=== PATIENT | female | born 1985 | race Caucasian/White ===

== ENCOUNTER 2020-08-16 10:49 | Emergency (ER) | payer MEDICAID, OTHER, SELFPAY ==
[~2020-08-16] VITALS: Ht 170.2 cm; Wt 88.3 kg
[2020-08-16 10:49] VITALS: BP 132/85
[2020-08-16] MEDS ORDERED: IBUP1TAB7 PO (11:06)
--- NOTE | 2020-08-16 12:19 | REP ---
INDICATION: moving heavy dresser Tues pain since. COMPARISON: None. TECHNIQUE: Two views left scapula. FINDINGS: There is no acute fracture, dislocation or intrinsic bone disease. IMPRESSION: No fracture or dislocation. <Electronically signed by [place] Hartman > 08/16/20 [id number]
--- NOTE | 2020-08-16 12:19 | REP ---
INDICATION: moving heavy dresser Tues pain since COMPARISON: None. TECHNIQUE: Three views left shoulder. FINDINGS: There is no evidence of acute fracture, dislocation, or intrinsic bone disease. IMPRESSION: No fracture or dislocation. <Electronically signed by [place] Hartman > 08/16/20 [id number]
[2020-08-16] MEDS ORDERED: ACETAMINOPHEN 500 MG TAB PO ONE (13:15)
== END 2020-08-16 13:20 | disposition home or self-care (01) ==
LOC: M ED 10:49
DX: M25.512 Pain in left shoulder (principal); J45.909 Unspecified asthma, uncomplicated; F31.9 Bipolar disorder, unspecified; Z88.8 Allergy status to other drugs, medicaments and biological substances

== ENCOUNTER 2020-09-18 20:52 | Emergency (ER) | payer MEDICAID ==
[~2020-09-18] VITALS: Ht 167.6 cm; Wt 81.8 kg
[~2020-09-18 20:52] MED LIST: IBUP1TAB7 PO
[2020-09-18] MEDS ORDERED: diphenhydrAMINE 50MG/ML VIAL (J1200) IV STA (22:19)
[2020-09-18] MEDS ORDERED: METOCLOPRAMIDE INJ 10MG/2ML VIAL (J2765 PER 1) IV ONE (22:30)
[2020-09-18] MEDS ORDERED: NS 1,000 ML IV ONE (22:30)
[2020-09-18] MEDS ORDERED: KETOROLAC 30 MG/ML 1ML VIAL IV ONE (22:30)
[2020-09-18 23:01] LABS: BASO # 0.1 10^3/uL (0.0-0.2); BASO % 0.6 % (0.0-1.0); EOS # 0.1 10^3/uL (0.0-0.5); EOS % 0.8 % (0.0-3.0); HEMATOCRIT 47.1 % (36.0-47.0); HEMOGLOBIN 15.2 g/dl (12.0-15.5); LYMPH % 22.9 % (24.0-44.0); MEAN CORPUSCULAR HEMOGLOBIN 28.2 pg (27.0-33.0); MEAN CORPUSCULAR HGB CONC 32.3 g/dl (32.0-36.5); MEAN CORPUSCULAR VOLUME 87.4 fl (80.0-96.0); MONO # 1.2 10^3/uL (0.0-0.8); MONO % 8.7 % (2.0-8.0); NEUTROPHILS # 8.8 10^3/uL (1.5-8.5); NEUTROPHILS % 66.5 % (36.0-66.0); PLATELET COUNT, AUTOMATED 244 10^3/uL (150-450); RED BLOOD COUNT 5.39 10^6/uL (4.00-5.40); WHITE BLOOD COUNT 13.2 10^3/uL (4.0-10.0)
[2020-09-19 01:08] VITALS: BP 122/71
--- NOTE | 2020-09-19 07:58 | REP ---
INDICATION: hx migraine, new area, not typical for pt.. Repeat dictation. Preliminary report is provided at the time of the exam by ton LANDRUM. COMPARISON: None. TECHNIQUE: Helical scanning is acquired. 5 mm axial images were reformatted. Coronal MPR images were generated. FINDINGS: Bone window settings demonstrate an intact bony calvarium. There is no evidence of skull fracture or incidental bony calvarial lesion. The visualized paranasal sinuses appear clear. No intraorbital abnormality is seen. On soft tissue window setting images; the lateral, third, and fourth ventricles are normal in size and position. Hartman-white differentiation pattern is normal above and below the tentorium. There are is no evidence of intracranial hemorrhage. No mass, edema, infarction, or midline shift is seen. No extra-axial fluid collection is appreciated. Digital preliminary gift officer radiograph is unremarkable. The patient is edentulous. IMPRESSION: Negative noncontrast head CT. <Electronically signed by Fredy Berrios > 09/19/20 [id number]
== END 2020-09-19 01:25 | disposition home or self-care (01) ==
LOC: M ED 20:52
DX: R51.9 Headache, unspecified (principal); F31.9 Bipolar disorder, unspecified; Z88.8 Allergy status to other drugs, medicaments and biological substances; Z79.899 Other long term (current) drug therapy
CPT/HCPCS: 70450; 80047; 83735; 84702; 85025; 96361; 96374; 96375; 99284; J1200; J1885; J2765

== ENCOUNTER 2020-09-26 12:33 | Emergency (ER) | payer MEDICAID ==
[~2020-09-26] VITALS: Ht 165.1 cm; Wt 85.6 kg
[2020-09-26] MEDS ORDERED: EXCETAB33 PO (12:44)
--- OUTSIDE RECORDS SUMMARY | 2020-09-26 13:04 | CCD ---
Author Author [facility] Organization [facility] Address Unknown Phone Unavailable Care Team Providers Care Switching Clerk Name Role Phone Martha ANTON MD Unavailable Unavailable Martha ANTON MD Unavailable Unavailable Martha ANTON MD Unavailable Unavailable Martha ANTON MD Unavailable Unavailable Martha ANTON MD Unavailable Unavailable Martha ANTON MD Unavailable Unavailable Martha ANTON MD Unavailable Unavailable Martha ANTON MD Unavailable Unavailable Martha ANTON MD Unavailable Unavailable Martha ANTON MD Unavailable Unavailable Martha ANTON MD Unavailable Unavailable Martha ANTON MD Unavailable Unavailable Martha ANTON MD Unavailable Unavailable Martha ANTON MD Unavailable Unavailable Martha ANTON MD Unavailable Unavailable Martha ANTON MD Unavailable Unavailable Martha ANTON MD Unavailable Unavailable Martha ANTON MD Unavailable Unavailable Martha ANTON MD Unavailable Unavailable Martha ANTON MD Unavailable Unavailable Martha ANTON MD Unavailable Unavailable Martha ANTON MD Unavailable Unavailable Martha ANTON MD Unavailable Unavailable Martha ANTON MD Unavailable Unavailable Martha ANTON MD Unavailable Unavailable Martha ANTON MD Unavailable Unavailable Martha ANTON MD Unavailable Unavailable Martha ANTON MD Unavailable Unavailable Martha ANTON MD Unavailable Unavailable Martha ANTON MD Unavailable Unavailable Martha ANTON MD Unavailable Unavailable Martha ANTON MD Unavailable Unavailable Martha ANTON MD Unavailable Unavailable Martha ANTON MD Unavailable Unavailable SETTERMartha MD Unavailable Unavailable SETTERMartha MD Unavailable Unavailable SETTERMartha MD Unavailable Unavailable SETTER, Martha ORTEZ MD Unavailable Unavailable SETTER, Martha ORTEZ MD Unavailable Unavailable SETTER, Martha ORTEZ MD Unavailable Unavailable SETTER, Martha ORTEZ MD Unavailable Unavailable SETTERMartha MD Unavailable Unavailable SETTER, Martha ORTEZ MD Unavailable Unavailable SETTER, Martha ORTEZ MD Unavailable Unavailable SETTER, Martha ORTEZ MD Unavailable Unavailable SETTER, Martha ORTEZ MD Unavailable Unavailable SETTER, Martha ORTEZ MD Unavailable Unavailable SETTER, Martha ORTEZ MD Unavailable Unavailable SETTER, Martha ORTEZ MD Unavailable Unavailable SETTER, Martha ORTEZ MD Unavailable Unavailable SETTER, Martha ORTEZ MD Unavailable Unavailable SETTER, Martha ORTEZ MD Unavailable Unavailable SETTER, Martha ORTEZ MD Unavailable Unavailable SETTER, Martha ORTEZ MD Unavailable Unavailable SETTERMartha MD Unavailable Unavailable SETTERMartha MD Unavailable Unavailable SETTER, Martha ORTEZ MD Unavailable Unavailable SETTER, Martha ORTEZ MD Unavailable Unavailable SETTER, Martha ORTEZ MD Unavailable Unavailable SETTER, Martha ORTEZ MD Unavailable Unavailable SETTERMartha MD Unavailable Unavailable SETTERMartha MD Unavailable Unavailable SETTERMartha MD Unavailable Unavailable SETTERMartha MD Unavailable Unavailable SETTERMartha MD Unavailable Unavailable SETTERMartha MD Unavailable Unavailable SETTERMartha MD Unavailable Unavailable SETTERMartha MD Unavailable Unavailable SETTERMartha MD Unavailable Unavailable SETTERMartha MD Unavailable Unavailable SETTERMartha MD Unavailable Unavailable SETTERMartha MD Unavailable Unavailable SETTERMartha MD Unavailable Unavailable SETTERMartha MD Unavailable Unavailable SETTERMartha MD Unavailable Unavailable SETTERMartha MD Unavailable Unavailable SETTERMartha MD Unavailable Unavailable SETTERMartha MD Unavailable Unavailable SETTERMartha MD Unavailable Unavailable SETTERMartha MD Unavailable Unavailable SETTERMartha MD Unavailable Unavailable SETTERMartha MD Unavailable Unavailable SETTERMartha MD Unavailable Unavailable SETTERMartha MD Unavailable Unavailable SETTERMartha MD Unavailable Unavailable SETTERMartha MD Unavailable Unavailable SETTERMartha MD Unavailable Unavailable SETTERMartha MD Unavailable Unavailable SETTERMartha MD Unavailable Unavailable SETTER, Martha ORTEZ MD Unavailable Unavailable SETTER, Martha ORTEZ MD Unavailable Unavailable SETTER, Martha ORTEZ MD Unavailable Unavailable SETTER, Martha ORTEZ MD Unavailable Unavailable SETTER, Martha ORTEZ MD Unavailable Unavailable SETTER, Martha ORTEZ MD Unavailable Unavailable SETTER, Martha ORTEZ MD Unavailable Unavailable SETTER, Martha ORTEZ MD Unavailable Unavailable SETTER, Martha ORTEZ MD Unavailable Unavailable SETTER, Martha ORTEZ MD Unavailable Unavailable SETTER, Martha ORTEZ MD Unavailable Unavailable SETTER, Martha ORTEZ MD Unavailable Unavailable SETTER, Martha ORTEZ MD Unavailable Unavailable SETTER, Martha ORTEZ MD Unavailable Unavailable SETTER, Martha ORTEZ MD Unavailable Unavailable SETTER, Martha ORTEZ MD Unavailable Unavailable SETTER, Martha ORTEZ MD Unavailable Unavailable SETTER, Martha ORTEZ MD Unavailable Unavailable Francois, M Barratt PA Unavailable Unavailable Francois, M Barratt PA Unavailable Unavailable Francois, M Barratt PA Unavailable Unavailable Francois, M Barratt PA Unavailable Unavailable Francois, M Barratt PA Unavailable Unavailable Francois, M Barratt PA Unavailable Unavailable Francois, M Barratt PA Unavailable Unavailable Francois, M Barratt PA Unavailable Unavailable Francois, M Barratt PA Unavailable Unavailable Francois, M Barratt PA Unavailable Unavailable Francois, M Barratt PA Unavailable Unavailable Francois, M Barratt PA Unavailable Unavailable Francois, M Barratt PA Unavailable Unavailable Francois, M Barratt PA Unavailable Unavailable Francois, M Barratt PA Unavailable Unavailable Francois, M Barratt PA Unavailable Unavailable Francois, M Barratt PA Unavailable Unavailable Francois, M Barratt PA Unavailable Unavailable Francois, M Barratt PA Unavailable Unavailable Francois, M Barratt PA Unavailable Unavailable Francois, M Barratt PA Unavailable Unavailable Francois, M Barratt PA Unavailable Unavailable Francois, M Barratt PA Unavailable Unavailable Francois, M Barratt PA Unavailable Unavailable Francois, M Barratt PA Unavailable Unavailable Francois, M Barratt PA Unavailable Unavailable Francois, M Barratt PA Unavailable Unavailable Re-disclosure Warning The records that you are about to access may contain information from federally-assisted alcohol or drug abuse programs. If such information is present, then the following federally mandated warning applies: This information has been disclosed to you from records protected by federal confidentiality rules (42 CFR part 2). The federal rules prohibit you from making any further disclosure of this information unless further disclosure is expressly permitted by the written consent of the person to whom it pertains or as otherwise permitted by 42 CFR part 2. A general authorization for the release of medical or other information is NOT sufficient for this purpose. The Federal rules restrict any use of the information to criminally investigate or prosecute any alcohol or drug abuse patient.The records that you are about to access may contain highly sensitive health information, the redisclosure of which is protected by Article 27-F of the [facility] Public Health law. If you continue you may have access to information: Regarding HIV / AIDS; Provided by facilities licensed or operated by the [facility] Office of Mental Health; or Provided by the [facility] Office for People With Developmental Disabilities. If such information is present, then the following [facility] mandated warning applies: This information has been disclosed to you from confidential records which are protected by state law. State law prohibits you from making any further disclosure of this information without the specific written consent of the person to whom it pertains, or as otherwise permitted by law. Any unauthorized further disclosure in violation of state law may result in a fine or alf sentence or both. A general authorization for the release of medical or other information is NOT sufficient authorization for further disc losure. Encounters Encounter Providers Location Date Indications Data Source(s ) Outpatient Attender: NEELIMA ANTON MD 10/03/2020 12:00:00 A [facility] Outpatient Attender: Maia OLMEDO Physical Therapy 12:00:00 PM EST [facility] ([facility]) Insurance Providers Payer name Policy type / Coverage type Policy ID Covered democrat ID Covered democrat's relationship to pérez Policy Pérez Plan Information EMEDNY [id number] SP [id number] [employer] [id number] SELF PAY ONLY [id number] SP [id number] MEDICAID M [id number] Self [id number] Surgeries/Procedures Procedure Description Date Indications Data Source(s) ARTHROCENTESIS ASPIR&/INJECTION MAJOR JT/BURSA 021 12:00:00 AM EST [facility] ([facility]) Vital Signs ID Date Data Source UNK Name Value Range Interpretation Code Description Data Source(s) Body mass index (BMI) [Ratio] 30.1 kg/m2 30.1 k g/m2 [facility] ([facility]) Body weight 189.50 [lb_av] 189.50 [lb_av] YESENIA T ([facility] ) Body height 66.5 [in_i] 66.5 [in_i] JENNIFER ([facility] ) 5'6.50" Body temperature 96.9 [degF] 96.9 [degF] JENNIFER ([facility] )
--- OUTSIDE RECORDS SUMMARY | 2020-09-26 13:04 | CCD | Continuity of Care Document ---
Author Author Amy FRANCOIS PA-C Organization Unknown Address [address] [place] [id number] Phone [phone] Care Team Providers Care Court Registry Officer Name Role Phone Omid Akins MD AUT Unavailable Problems Description No Information Available Social History Type Date Description Comments Sex Unknown Allergies, Adverse Reactions, Alerts Description No Information Available Medications Description No Information Available Immunizations Description No Information Available Vital Signs Date Vital Result Comment 09/06/2020 12:57pm Body Temperature 96.9 F Height 66.5 inches 5'6.50" Weight 189.50 lb BMI (Body Mass Index) 30.1 kg/m2 Results Description No Information Available Procedures Date Code Description Status 09/06/2020 62428 Inject/Drain Joint/Bursa Major C ompleted Medical Devices Description No Information Available Encounters Type Date Location Provider Dx Diagnosis Office Visit 09/06/2020 1:00p [place] Maia Francois PA-C S4 3.492A Other sprain of left shoulder joint, initial encounter Assessments Date Code Description Provider 09/06/2020 S43.492A Other sprain of left shoulder talia int, initial encounter Maia Francois PA-C Plan of Treatment Future Appointment(s):* 10/08/2020 9:45 am - Maia Francois PA-C at [place] 09/06/2020 - Maia Francois PA-C* S43.492A Other sprain of left shoulder joint, initial encounter* Follow up:* in 4 weeks for left shoulder recheck bms Functional Status Description No Information Available Mental Status Description No Information Available Referrals Description No Information Available
--- OUTSIDE RECORDS SUMMARY | 2020-09-26 13:04 | CCD | Continuity of Care Document ---
Author Author Amy FRANCOIS PA-C Organization Unknown Address [address] [place] [address] Phone [phone] Care Team Providers Care Sales Consultant Insurance Name Role Phone Omid Akins MD AUT [...] Available Procedures Date Code Description Status 09/06/2020 46729 Inject/Drain Joint/Bursa Major C ompleted Medical Devices Description No Information Available Encounters Type Date Location Provider Dx Diagnosis Office Visit 09/06/2020 1:00p [place] Maia Francois PA-C S4 3.492A Other sprain of left shoulder joint, initial encounter Assessments Date Code Description Provider 09/06/2020 S43.492A Other sprain of left shoulder talia int, initial encounter Maia Francois PA-C Plan of Treatment 09/06/2020 - Maia Francois PA-C* S43.492A Other sprain of left shoulder joint, initial encounter* Follow up:* in 4 weeks for left shoulder recheck bms Functional Status Description No Information Available Mental Status Description No Information Available Referrals Description No Information Available
[2020-09-26] MEDS ORDERED: ONDANSETRON 4MG/2ML VIAL IV ONE (13:25)
[2020-09-26] MEDS ORDERED: NS 1,000 ML IV ONE (13:25)
[2020-09-26] MEDS ORDERED: diphenhydrAMINE 50MG/ML VIAL (J1200) IV ONE (13:25)
[2020-09-26] MEDS ORDERED: KETOROLAC 30 MG/ML 1ML VIAL IV ONE (13:25)
[2020-09-26 13:59] LABS: BASO % 0.4 % (0.0-1.0); EOS # 0.1 10^3/uL (0.0-0.5); EOS % 1.1 % (0.0-3.0); HEMATOCRIT 44.7 % (36.0-47.0); HEMOGLOBIN 14.6 g/dl (12.0-15.5); LYMPH # 1.7 10^3/uL (1.5-5.0); LYMPH % 23.9 % (24.0-44.0); MEAN CORPUSCULAR HEMOGLOBIN 28.5 pg (27.0-33.0); MEAN CORPUSCULAR HGB CONC 32.7 g/dl (32.0-36.5); MEAN CORPUSCULAR VOLUME 87.1 fl (80.0-96.0); MONO # 0.6 10^3/uL (0.0-0.8); MONO % 8.7 % (2.0-8.0); NEUTROPHILS # 4.7 10^3/uL (1.5-8.5); NEUTROPHILS % 65.6 % (36.0-66.0); PLATELET COUNT, AUTOMATED 222 10^3/uL (150-450); RED BLOOD COUNT 5.13 10^6/uL (4.00-5.40); WHITE BLOOD COUNT 7.2 10^3/uL (4.0-10.0)
[2020-09-26 14:13] LABS: INR 0.91; PROTHROMBIN TIME 12.4 SECONDS (12.5-14.3)
[2020-09-26 14:36] LABS: BLOOD UREA NITROGEN 9 MG/DL (7-18); CALCIUM LEVEL 8.7 MG/DL (8.5-10.1); CARBON DIOXIDE LEVEL 30 MEQ/L (21-32); CHLORIDE LEVEL 108 MEQ/L (98-107); CREATININE FOR GFR 0.82 MG/DL (0.55-1.30); FREE T4 1.15 NG/DL (0.76-1.46); GLOMERULAR FILTRATION RATE > 60.0 (>60); GLUCOSE, FASTING 98 MG/DL (70-100); MAGNESIUM LEVEL 2.1 MG/DL (1.8-2.4); POTASSIUM SERUM 3.7 MEQ/L (3.5-5.1); SODIUM LEVEL 141 MEQ/L (136-145); THYROID STIMULATING HORMONE 0.618 uIU/ML (0.358-3.740)
[2020-09-26] MEDS ORDERED: SUMA50TA2 PO (14:49)
[2020-09-26 15:03] VITALS: BP 110/74
== END 2020-09-26 15:30 | disposition home or self-care (01) ==
LOC: M ED 12:33
DX: G43.909 Migraine, unspecified, not intractable, without status migrainosus (principal); J45.909 Unspecified asthma, uncomplicated; F31.9 Bipolar disorder, unspecified; Z79.899 Other long term (current) drug therapy; Z79.82 Long term (current) use of aspirin; Z88.8 Allergy status to other drugs, medicaments and biological substances
CPT/HCPCS: 80048; 83735; 84439; 84443; 84702; 85025; 85610; 85730; 96361; 96374; 96375; 99284; J1200; J1885; J2405

== ENCOUNTER → 2020-10-14 | Outpatient (REF) | payer OTHER, MEDICAID ==
[~2020-10-14] MED LIST changes: +EXCETAB33 PO; +SUMA50TA2 PO
[2020-10-14 14:04] LABS: ALBUMIN 3.6 GM/DL (3.2-5.2); ALT/SGPT 22 U/L (12-78); BILIRUBIN,TOTAL 0.1 MG/DL (0.2-1.0); BLOOD UREA NITROGEN 10 MG/DL (7-18); CALCIUM LEVEL 8.9 MG/DL (8.5-10.1); CARBON DIOXIDE LEVEL 30 MEQ/L (21-32); CHLORIDE LEVEL 109 MEQ/L (98-107); CHOLESTEROL LEVEL 171 MG/DL (<200); CHOLESTEROL RISK RATIO 3.562 (<5); CREATININE FOR GFR 0.61 MG/DL (0.55-1.30); GLOMERULAR FILTRATION RATE > 60.0 (>60); GLUCOSE, FASTING 143 MG/DL (70-100); HDL CHOLESTEROL 48 MG/DL (>40); LDL CHOLESTEROL 93 MG/DL (<100); NON-HDL-C 123 MG/DL; POTASSIUM SERUM 4.3 MEQ/L (3.5-5.1); SODIUM LEVEL 142 MEQ/L (136-145); TOTAL PROTEIN 6.4 GM/DL (6.4-8.2); TRIGLYCERIDES LEVEL 148 MG/DL (<150)
[2020-10-14 14:25] LABS: HEMOGLOBIN A1c 5.2 %
[2020-10-14 14:35] LABS: HIV 1&2 SCREEN CENTAUR NEGATIVE (NEGATIVE)
== END ==
LOC: M SFHCPLAZ 09:24
PROVIDERS: ATTEND Family Medicine
DX: Z00.00 Encounter for general adult medical examination without abnormal findings (principal); Z11.4 Encounter for screening for human immunodeficiency virus [HIV]; Z13.1 Encounter for screening for diabetes mellitus; Z13.6 Encounter for screening for cardiovascular disorders

== ENCOUNTER 2020-11-11 19:53 | Emergency (ER) | payer OTHER, MEDICAID ==
[~2020-11-11] VITALS: Ht 165.1 cm; Wt 89.5 kg
[2020-11-11] MEDS ORDERED: TRAM50TA2 (20:14)
[2020-11-11] MEDS ORDERED: TERB250T12 (20:14)
--- NOTE | 2020-11-11 21:02 | REPVR ---
PROCEDURE INFORMATION: Exam: XR Left Ankle Exam date and time: 11/11/2020 8:36 PM Age: 35 years old Clinical indication: Pain; Ankle; Left; Additional info: Rolled over on her ankle and heard a snap TECHNIQUE: Imaging protocol: XR Left ankle. Views: 3 or more views. COMPARISON: No relevant prior studies available. FINDINGS: Bones/joints: Normal. Soft tissues: Normal. IMPRESSION: 1. No acute findings. 2. Further evaluation be obtained with ankle MRI if clinically desired. Electronically signed by: Jason Donnelly On 11/11/2020 21:02:40 PM
[2020-11-11] MEDS ORDERED: KETOROLAC TROMETHAMINE 10 MG TAB PO ONE (23:30)
[2020-11-11 23:56] VITALS: BP 118/61
== END 2020-11-11 23:57 | disposition home or self-care (01) ==
LOC: M ED 19:53
DX: S93.412A Sprain of calcaneofibular ligament of left ankle, initial encounter (principal); X50.9XXA Other and unspecified overexertion or strenuous movements or postures, initial encounter; Y92.018 Other place in single-family (private) house as the place of occurrence of the external cause; G43.909 Migraine, unspecified, not intractable, without status migrainosus; Z88.8 Allergy status to other drugs, medicaments and biological substances; Z79.899 Other long term (current) drug therapy; Z79.82 Long term (current) use of aspirin